=== PATIENT | male | born 1995 | race Hispanic/Latino ===

== ENCOUNTER 2020-06-22 | Emergency (ER) | payer SELFPAY ==
[2020-06-22] MEDS ORDERED: IBUPROFEN600 MG PO (23:33)
[2020-06-22] MEDS ORDERED: AMOXICILLIN500 M2 PO (23:33)
== END 2020-06-23 00:10 | disposition home or self-care (01) | DRG 159 ==
DX: K05.10 Chronic gingivitis, plaque induced (principal)